=== PATIENT | female | born 1980 | race Caucasian/White ===

== ENCOUNTER 2021-07-01 18:10 | Emergency (ER) | payer OTHER ==
[~2021-07-01] VITALS: Ht 177.8 cm; Wt 59.1 kg
[~2021-07-01 18:10] MED LIST: NITR100C6 PO
[2021-07-01 19:07] VITALS: BP 105/41
[2021-07-01] MEDS ORDERED: HYDROcodone/acetaminophen 5mg/325mg tablet PO ONE (19:25)
[2021-07-01] MEDS ORDERED: amox tr/potassium clavulanate 875/125mg TAB PO ONE (19:25)
[2021-07-01] MEDS ORDERED: ondansetron 4mg rapidly disintigrating tab PO ONE (19:25)
[2021-07-01] MEDS ORDERED: AMOX-580 PO (19:36)
[2021-07-01] MEDS ORDERED: HYDR-3965 PO (21:02)
[2021-07-01] MEDS ORDERED: TETanus/Pertussis (Acell)/Diphther VAC/PF (Tdap-Adult) 0.5ml syringe IMVAC ONE (21:05)
--- NOTE | 2021-07-01 21:20 | NUR ---
[employer] IS AT BEDSIDE DOING SPLINT, PT TO BE DISCHARGED AFTER SPLINT DONE
== END 2021-07-01 21:55 | disposition home or self-care (01) ==
LOC: ER 18:11
DX: S62.306A Unspecified fracture of fifth metacarpal bone, right hand, initial encounter for closed fracture (principal); S81.812A Laceration without foreign body, left lower leg, initial encounter; S81.811A Laceration without foreign body, right lower leg, initial encounter; Z90.710 Acquired absence of both cervix and uterus; Z98.890 Other specified postprocedural states; Z79.2 Long term (current) use of antibiotics; Z79.899 Other long term (current) drug therapy; Z20.3 Contact with and (suspected) exposure to rabies; W54.0XXA Bitten by dog, initial encounter; Y93.89 Activity, other specified; Y92.89 Other specified places as the place of occurrence of the external cause; Y99.8 Other external cause status
CPT/HCPCS: 29125; 73130; 90471; 90715; 99284